=== PATIENT | male | born 1970 ===

== ENCOUNTER 2021-05-25 18:10 | Emergency (ER) | payer OTHER, SELFPAY ==
[2021-05-25 18:32] VITALS: BP 155/77; PULSE 72; RESP 16; TEMP 37.2; O2SAT 99; BMI 45.4
--- NOTE | 2021-05-25 19:48 | ED.BACK ---
HPI - Back Pain/Injury General Chief Complaint: Back Pain/Injury Stated Complaint: Herniated disc Time Seen by Provider: 05/25/21 19:45 Source: patient Mode of arrival: ambulatory History of Present Illness HPI Narrative: 50-year-old male with a past medical history of hypertension, hyperlipidemia, diabetes, presents to the ED complaining of acute on chronic right-sided low back pain x1 year. States pain is progressing/worsening radiating into right buttock. Admits to having x-ray with PCP about 1 year ago showing degenerative disc disease. Denies known injury/trauma or fall, numbness/tingling, weakness, urinary incontinence/retention, fever MD elicited complaint: back pain Onset (ago): month(s) Related Data Previous Rx's Medication Instructions Recorded acetaminophen 500 mg tablet 500 mg PO Q6H PRN #20 tab 05/25/21 (Tylenol Extra Strength) cyclobenzaprine 5 mg tablet 5 mg PO Q8H PRN 5 Days #14 tab 05/25/21 lidocaine 5 % topical patch 1 patch TOPICAL DAILY PRN #30 ea 05/25/21 (Lidoderm) MDD remove after 12 hours Allergies Allergy/AdvReac Type Severity Reaction Status Date / Time No Known Allergies Allergy Verified 05/25/21 18:32 [No Known Allergies*] Review of Systems Review of Systems: Constitutional: No Fever, No Chills ENT/Mouth: No Ear Pain, No Nasal Congestion, No Sinus Pain, No sore throat, No Rhinorrhea, No Swallowing Difficulty Cardiovascular: No Chest Pain, No SOB Respiratory: No Cough, No Sputum Gastrointestinal: No Nausea, No Vomiting, No Diarrhea, No Constipation, No Abdominal pain Genitourinary: No Dysuria, No Hematuria, No Urinary Incontinence/retention, No Flank Pain Musculoskeletal: + joint pain, No Myalgias, No Joint Swelling Skin: No Skin Lesions, No rash Neuro: No Weakness, No Numbness, No Paresthesias Yes all other systems are reviewed and are negative Neurologic: Denies Abnormal speech present and Denies Sensory deficit (Neuro) [facility] Past Medical History Attestation statement: The following information was validated with the patient. Medical History Diabetes mellitus, type 2 Hypercholesteremia Hypertension Social History Social History Advance Directives: No Advance Directives Information Provided: Yes Physical Exam Vital Signs: Vital Signs: Last Vital Signs Temp 98.9 F 05/25/21 18:32 Pulse 72 05/25/21 18:32 Resp 16 05/25/21 18:32 BP 155/77 H 05/25/21 18:32 Pulse Ox 99 05/25/21 18:32 BMI result Body Mass Index 45.4 Const: General: cooperative, healthy appearing and no acute distress Orientation/consciousness: patient oriented x3 Limitations: no limitations HENMT: Head: Yes normal to inspection and Yes atraumatic Ears: hearing grossly normal bilaterally General nose exam: Normal external nose present Face and sinus: Yes normal facial exam Eyes: General: appearance normal, both eyes and all related structures EOM: EOMs intact bilaterally Neck: Other: No midline cervical spinous tenderness Neck: Yes normal visual inspection Resp: Effort & Inspection: normal respiratory effort and no respiratory distress Cardio: Rate: regular rate Peripheral pulses: dorsalis pedis present GI: Inspection: Yes normal to inspection Palpation (GI): Soft to palpation, nontender, no guarding and not rigid Back/Spine/Pelvis: Other: No midline thoracic/lumbar spinous tenderness/step-off or deformity. Pain not reproducible on exam Skin: Rashes: no rashes Wounds: no wounds Neuro: Other: No saddle anesthesia. Strength intact throughout. Ambulating with steady gait General: patient oriented x3, gait normal, tone normal, moves all extremities and no focal motor deficits Cognition (Neuro): normal cognition Speech: No Abnormal speech present Gait exam (Neuro): Normal gait present Motor exam (neuro): 5/5 motor strength present throughout and Normal motor muscle tone present throughout Sensory Exam: No Sensory deficit (Neuro) Extrem: General: Yes normal to inspection MDM - Back Pain/Injury MDM Narrative Medical decision making narrative: 50-year-old male with a past medical history of hypertension, hyperlipidemia, diabetes, presents to the ED complaining of acute on chronic right-sided low back pain x1 year. On exam vital signs stable, NAD, nontoxic appearing, no midline spinous tenderness throughout, no red flag symptoms. Ambulating with steady gait. No saddle anesthesia. Likely MSK pain/strain/sciatica. Low concern for cauda equina/cord compression or epidural abscess. Plan: Symptomatic treatment, PCP follow-up Differential Diagnosis Differential diagnosis: Likely lumbar radiculopathy and sciatica Medical Records Attestation: I reviewed the patient's medical records. Lab Data Attestation: I reviewed the patient's lab results. Discharge Plan Discharge Clinical Impression: Lumbar radiculopathy Patient Disposition: Home, Self-Care Instructions: Back Pain (ED) Additional Instructions: Your pain is likely musculoskeletal Flexeril is a muscle relaxer, take at night as it makes you drowsy, do not drive, drink alcohol, or operate machinery while taking it Lidoderm patches are numbing patches, apply to painful area In addition take Tylenol at home If symptoms persist or worsen, pain becomes unbearable, you developed urinary retention or incontinence, or weakness return to the ED Prescriptions: New acetaminophen [Tylenol Extra Strength] 500 mg tablet 500 mg PO Q6H PRN (Reason: pain or fever) Qty: 20 RF: 0 lidocaine [Lidoderm] 5 % adhesive patch,medicated 1 patch topical DAILY MDD remove after 12 hours PRN (Reason: pain) Qty: 30 RF: 0 cyclobenzaprine 5 mg tablet 5 mg PO Q8H PRN (Reason: pain (scale score 7-10)) 5 Days Qty: 14 RF: 0 Referrals: Physician,Unknown J [Primary Care Provider] - 2 days
== END 2021-05-25 20:35 | disposition home or self-care (01) ==
PROVIDERS: Emergency Provider Emergency Medicine
DX: M54.16 Radiculopathy, lumbar region (principal); M54.50 Low back pain, unspecified; I10 Essential (primary) hypertension; E78.5 Hyperlipidemia, unspecified
CPT/HCPCS: 99283

== ENCOUNTER 2023-02-18 17:51 | Emergency (ER) | payer OTHER, SELFPAY ==
[2023-02-18 17:56] VITALS: BP 114/73; PULSE 107; RESP 18; TEMP 35.6; O2SAT 100; BMI 41.2
== END 2023-02-18 20:20 | disposition left against medical advice (07) ==
PROVIDERS: Emergency Provider Emergency Medicine
DX: M25.511 Pain in right shoulder (principal)
CPT/HCPCS: 99281

== ENCOUNTER 2023-02-19 11:24 | Emergency (ER) | payer OTHER, SELFPAY ==
--- NOTE | ~2023-02-19 | XR_ITS ---
EXAMINATION: XR SHOULDER, RIGHT CLINICAL INFORMATION: Right shoulder pain COMPARISON: None available. TECHNIQUE: Three views of the right shoulder. FINDINGS: No fracture. Moderate degenerative changes across the glenohumeral joint. Mild degenerative changes in the acromioclavicular joint. The visualized right lung and chest wall are clear. XR/XR shoulder RT min 2V IMPRESSION: Moderate glenohumeral degenerative changes. No fracture.
--- NOTE | 2023-02-19 12:04 | ED_ITS ---
HPI - General Adult General Chief complaint: Extremity Problem Stated complaint: R shoulder pain Time Seen by Provider: 02/19/23 13:17 Source: patient Mode of arrival: ambulatory History of Present Illness HPI narrative: 52-year-old male who arrives with history of diabetes and osteoarthritis and reports 1 month of right shoulder discomfort that is not associated with any traumatic event. Patient reports that the pain is a burning sensation but does not radiate into the distal upper extremity. He denies any fever, chills any redness or swelling. Related Data Previous Rx's Medication Instructions Recorded acetaminophen 500 mg tablet 500 mg PO Q6H PRN pain or fever 05/25/21 (Tylenol Extra Strength) #20 tabs cyclobenzaprine 5 mg tablet 5 mg PO Q8H PRN pain (scale score 05/25/21 7-10) 5 days #14 tabs lidocaine 5 % topical patch 1 patch topical DAILY PRN pain #30 05/25/21 (Lidoderm) ea Allergies Allergy/AdvReac Type Severity Reaction Status Date / Time No Known Allergies Allergy Verified 05/25/21 18:32 [No Known Allergies*] Review of Systems Review of Systems: Pertinent positives and negatives as stated in the [facility] Past Medical History Source: nursing notes reviewed Medical History Diabetes mellitus, type 2 Hypertension Hypercholesteremia Social History Social History Advance Directives: No Advance Directives Information Provided: No Physical Exam ED Vital Signs: Vital Signs - 24 hr 02/19/23 12:06 Temperature 97.7 F Pulse Rate 91 Respiratory Rate 18 Blood Pressure 110/68 Pulse Oximetry 97 Oxygen Delivery Method Room Air BMI result Body Mass Index 41.1 VITAL SIGNS: Reviewed. GENERAL: Well developed, well nourished, in no acute distress. HEAD: Normocephalic/atraumatic EYES: PERRLA, EOMI LUNGS: Normal breath sounds. No adventitious sounds or accessory muscle use. SpO2<97> CARDIOVASCULAR: Regular rate and rhythm without noted murmurs ABDOMEN: Soft, non-tender, non-distended with bowel sounds. MUSCULOSKELETAL: No tenderness, deformities, or effusions noted on gross inspection. EXTREMITIES: No cyanosis, clubbing or edema. RIGHT SHOULDER: No erythema/induration, there is crepitus on range of motion but tenderness to palpation is noted over the AC and bicipital groove, hand diabetes clinical manager is 5/5 and otherwise neurovascular is intact. SKIN: Inspection of the skin reveals no rashes NEUROLOGIC: Alert and oriented x 4. Strength and sensation to light touch were grossly intact x 4. Course Course Course Narrative: This is an RME: Additional HPI, ROS, PE not included below will be deferred to primary provider. 52 yo m persents w/ atraumatic r shoulder pain X few days worsening PE benign Plan- xray Medical Decision Making Medical Decision Making MDM Narrative: This is a 52-year-old male with history and clinical presentation inconsistent with fracture or dislocation and nature of the pain is not consistent with radiculopathy. I have reviewed the x-ray and on prelim review there is no evidence of fracture or dislocation, radiology has not yet read the x-ray and patient wishes to leave. Given that there are no acute, emergent pathologies identified on the x-ray I discussed with the patient the importance of a referral to physical therapy and that he is at increased risk of frozen shoulder given his history of diabetes. Patient is otherwise stable for discharge to home. 1435: Official radiology read of right shoulder x-ray negative for fracture or dislocation but extensive degenerative changes at the glenohumeral joint. Differential Diagnosis Differential Diagnoses: The differential diagnosis associated with the presentation includes Please see the discussion above Admission/Observation Consideration of admission/observation: Escalation of care including admission/observation considered Please see the discussion above Radiology Impression Discussion of test interpretation with radiology: I have reviewed the radiologist's reading. Radiologist Impression: Please see the discussion above Discharge Plan Discharge Clinical Impression: Osteoarthritis of right shoulder Patient Disposition: Home, Self-Care Instructions: Osteoarthritis (ED), Shoulder Pain (ED) Additional Instructions: Continue to treat your shoulder pain as you have been, but highly recommend that you discuss with your primary care doctor and obtain a referral for physical therapy. Prescriptions: No Action acetaminophen [Tylenol Extra Strength] 500 mg tablet 500 mg PO Q6H PRN (Reason: pain or fever) Qty: 20 0RF lidocaine [Lidoderm] 5 % adhesive patch,medicated 1 patch topical DAILY MDD remove after 12 hours PRN (Reason: pain) Qty: 30 0RF Rx Instructions: leave on most painful area for up to 12 hrs cyclobenzaprine 5 mg tablet 5 mg PO Q8H PRN (Reason: pain (scale score 7-10)) 5 Days Qty: 14 0RF Interventions: ED Discharge Assessment Last Done: 02/19/23 13:56 Discharge Date/Time: 02/19/23 13:57
[2023-02-19 12:06] VITALS: BP 110/68; PULSE 91; RESP 18; TEMP 36.5; O2SAT 97; BMI 41.1
== END 2023-02-19 13:57 | disposition home or self-care (01) ==
PROVIDERS: Emergency Provider Student in an Organized Health Care Education/Training Program
DX: M19.011 Primary osteoarthritis, right shoulder (principal); M25.511 Pain in right shoulder; E11.9 Type 2 diabetes mellitus without complications; E66.9 Obesity, unspecified; Z68.41 Body mass index [BMI] 40.0-44.9, adult
CPT/HCPCS: 73030; 99282; 99283